=== PATIENT | male | born 1990 | race Caucasian/White ===

== ENCOUNTER 2018-04-22 21:41 | Emergency (ER) | payer OTHER ==
[2018-04-22] MEDS ORDERED: FENTANYL CITRATE INJ/PF 100 MCG/2 ML AMPUL IV ONE (23:26)
[2018-04-22] MEDS ORDERED: ONDANSETRON HCL INJ/PF 4 MG/2 ML SDV IV ONE (23:26)
[2018-04-22] MEDS ORDERED: DIPH/PERTUSS(ACELL)/TETANUS VAC/PF 0.5 ML SYR (>=10YO) IM ONE (23:29)
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
[2018-04-22 23:34] LABS: ABSOLUTE BASOPHILS # (AUTO) 0.1 10^3/uL (0.0-0.2); ABSOLUTE EOSINOPHILS # (AUTO) 0.1 10^3/uL (0.0-0.6); ABSOLUTE LYMPHOCYTES (AUTO) 2.6 10^3/uL (0.5-4.7); ABSOLUTE MONOCYTES (AUTO) 1.1 10^3/uL (0.1-1.4); ABSOLUTE NEUT (AUTO) 15.3 10^3/uL (1.7-8.2); BASOPHILS % (AUTO) 0.3 % (0-2); EOSINOPHILS % (AUTO) 0.4 % (0-6); HEMATOCRIT 46.7 % (37.9-51.0); HEMOGLOBIN 16.1 g/dL (13.5-17.0); LYMPHOCYTES % (AUTO) 13.5 % (13-45); MEAN CORPUSCULAR HEMOGLOBIN 31.9 pg (27.0-33.4); MEAN CORPUSCULAR HGB CONC 34.4 g/dL (32.0-36.0); MEAN CORPUSCULAR VOLUME 93 fl (80-97); MONOCYTES % (AUTO) 5.8 % (3-13); PLATELET COUNT 332 10^3/uL (150-450); RED BLOOD COUNT 5.04 10^6/uL (4.35-5.55); RED CELL DISTRIBUTION WIDTH 13.3 % (11.5-14.0); TOTAL CELLS COUNTED % (AUTO) 100 %; WHITE BLOOD COUNT 19.2 10^3/uL (4.0-10.5)
[2018-04-22 23:51] LABS: ANION GAP 16 (5-19); BLOOD UREA NITROGEN 8 mg/dL (7-20); CALCIUM 9.9 mg/dL (8.4-10.2); CARBON DIOXIDE 23 mmol/L (22-30); CHLORIDE 105 mmol/L (98-107); GLUCOSE 90 mg/dL (75-110); POTASSIUM 4.3 mmol/L (3.6-5.0); SODIUM 143.8 mmol/L (137-145)
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
[2018-04-23] MEDS ORDERED: HYDROCODONE/ACETAMINOPHEN 5-325 MG (6 TAB/ER DISP) PO PRN (00:54)
[2018-04-23 01:27] VITALS: BP 121/68
== END 2018-04-23 01:27 | disposition home or self-care (01) ==
LOC: ER 21:41
DX: S01.81XA Laceration without foreign body of other part of head, initial encounter (principal); S30.1XXA Contusion of abdominal wall, initial encounter; R10.9 Unspecified abdominal pain; R07.81 Pleurodynia; R07.1 Chest pain on breathing; V43.62XA Car passenger injured in collision with other type car in traffic accident, initial encounter; F17.200 Nicotine dependence, unspecified, uncomplicated
CPT/HCPCS: 99284; 96374; 96375; 36415; 85025; 80048; 71260; 74177; 12001; J3010; J2405

== ENCOUNTER 2018-04-26 13:01 | Emergency (ER) | payer OTHER ==
[2018-04-26] MEDS ORDERED: HYDROCODONE/ACETAMINOPHEN 5-325 MG TABLET PO ONE (13:41)
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
[2018-04-26] MEDS ORDERED: KETOROLAC TROMETHAMINE 60 MG/2 ML SDV IM ONE (14:40)
[2018-04-26 16:06] VITALS: BP 112/76
--- NOTE | 2018-04-26 17:30 | EKG REPORT ---
SEVERITY:- NORMAL ECG - SINUS RHYTHM : Confirmed by: Valerie Carlton 26-Apr-2018 17:30:16
== END 2018-04-26 16:05 | disposition home or self-care (01) ==
LOC: ER 13:01
DX: R07.81 Pleurodynia (principal); V49.9XXA Car occupant (driver) (passenger) injured in unspecified traffic accident, initial encounter; F17.200 Nicotine dependence, unspecified, uncomplicated
CPT/HCPCS: 93005; 99284; 96372; 71101; 93010; J1885